=== PATIENT | female | born 1945 | race Caucasian/White ===

== ENCOUNTER 2017-09-02 06:11 | Day surgery (SDC) | payer MEDICARE ==
--- NOTE | 2017-08-19 07:39 | HP ---
HISTORY AND PHYSICAL: DATE OF SURGERY: 09/02/17. DATE OF OFFICE VISIT: 08/16/17. SURGEON: Dr. Tanja Pearson * (DICTATED BY SANDIE PETER) PROCEDURE: Right knee arthroscopy with partial medial meniscectomy, possible chondroplasty, possible synovectomy. CHIEF COMPLAINT: Right knee pain. HISTORY OF PRESENT ILLNESS: Ms. Curiel is a 72-year-old female with complaints of right knee pain and MRI shows a medial meniscus tear. She has elected to proceed with right knee arthroscopy with partial medial meniscectomy. PAST MEDICAL HISTORY: Sleep apnea, skin cancer, history of breast cancer, and hyperlipidemia. PAST SURGICAL HISTORY: Tonsillectomy, left ovary removal, breast lumpectomy, cataract removal, squamous cell carcinoma removal, and left inguinal hernia repair. CURRENT MEDICATIONS: Magnesium, ibuprofen, chondroitin, azelastine, econazole, nitrate, Flonase, alprazolam, aspirin, and fish oil. ALLERGIES: SULFA and CRESTOR. FAMILY HISTORY: Cancer. SOCIAL HISTORY: She is a 72-year-old female. She lives with her . She does not smoke or use drugs. She uses occasional alcohol. REVIEW OF SYSTEMS: A complete 14-point review of systems was reviewed with the patient. She denies history of DVT, PE, hepatitis C, or HIV following surgery on her breast. She did have an infection 5 and a 1/2 years ago. She is unsure whether or not this was MRSA. PHYSICAL EXAMINATION GENERAL: She is a well developed, well nourished, in no acute distress. VITAL SIGNS: She stands 5 feet 4 inches tall, weighs 160 pounds. Her blood pressure is 124/72, her heart rate is 84. HEENT: Normocephalic, atraumatic. NECK: Supple. No palpable lymph nodes. PULMONARY: Lungs are clear to auscultation bilaterally. CARDIO: Regular rate and rhythm. Strong S1 and S2. ABDOMEN: Soft, nontender, nondistended. MUSCULOSKELETAL: Right lower extremity, the skin is intact. There are no open wounds or abrasions. She has tenderness over the medial joint line of the right knee. There is a mild effusion. She has 5 to 125 degrees of range of motion. 2+ dorsalis pedis pulses and intact sensation. ASSESSMENT AND PLAN: Ms. Curiel is a 72-year-old female with complaints of right knee pain and MRI shows a medial meniscus tear. She has elected to proceed with right knee arthroscopy with partial medial meniscectomy, possible chondroplasty, possible synovectomy, and the surgery is scheduled for 09/02/[address] Pearson discussed the risks and benefits of the surgery at today's visit and all of her questions were answered. She will follow up with Dr. Pearson 2 weeks. SANDIE PETER [id number]/[facility] #: [id number] MTDD
[~2017-09-02 06:11] MED LIST: Buffered Lidocaine 0.9% SYRIN* 5 ML/SYR SYRINGE INTRADERM ONE; Famotidine IV* 10 MG/ML 2 ML (20 mg) IV ONE; Metoclopramide TAB* 10 MG PO ONE
[2017-09-02] MEDS ORDERED: Buffered Lidocaine 0.9% SYRIN* 5 ML/SYR SYRINGE ONE (06:37)
[2017-09-02] MEDS ORDERED: Metoclopramide TAB* 10 MG ONE (06:37)
[2017-09-02] MEDS ORDERED: ceFAZolin 2 GM PREMIX (*) 2 GM/50 ML BAG IVPB ONE (06:37)
[2017-09-02] MEDS ORDERED: Famotidine IV* 10 MG/ML 2 ML (20 mg) ONE (06:37)
[2017-09-02] MEDS ORDERED: Ketorolac INJ* 30 MG/ML 1 ML VIAL ONE (06:56)
[2017-09-02] MEDS ORDERED: KETAMINE HCL* 50 MG/ML 10 ML VIAL ONE (06:56)
[2017-09-02] MEDS ORDERED: Midazolam* 1 MG/ML 5 ML VIAL (5 MG) ONE (06:56)
[2017-09-02] MEDS ORDERED: Dexamethasone IV* 4 MG/ML 1 ML (4 MG) ONE (06:56)
[2017-09-02] MEDS ORDERED: Propofol* 10 MG/ML 20 ML BTL IV PUSH ONE (06:56)
[2017-09-02] MEDS ORDERED: fentaNYL* 50 MCG/ML 2 ML VIAL (100 MCG VIAL) ONE (06:56)
[2017-09-02] MEDS ORDERED: Ondansetron INJ* 2 MG/ML VIAL ONE (06:56)
[2017-09-02] MEDS ORDERED: Lidocaine 2% PF * 5 ML VIAL ONE (06:56)
[2017-09-02] MEDS ORDERED: EPINEPHrine AMP 1 MG/ML ONE ×2 (06:57→07:06)
[2017-09-02] MEDS ORDERED: Bupivacaine 0.5% SDV PF* 10-30ML VIAL ONE (06:57)
[2017-09-02] MEDS ORDERED: methylPREDNISolone ACETATE 80* 80 MG/ML 1 ML VIAL ONE (06:57)
[2017-09-02] MEDS ORDERED: Ondansetron INJ* 2 MG/ML VIAL IV PRN (07:21)
[2017-09-02] MEDS ORDERED: oxyCODONE/Acetamin 5/325 MG* TAB PO PRN (07:21)
[2017-09-02] MEDS ORDERED: Levalbuterol 0.63MG/3ML NEB* UNIT OF USE INH PRN (07:21)
[2017-09-02] MEDS ORDERED: Chloroprocaine 2%* 20 ML VIAL ONE (07:37)
[2017-09-02] MEDS ORDERED: EPHEDrine (Pressors)* 50 MG/ML VIAL ONE (08:15)
[2017-09-02] MEDS ORDERED: oxyCODONE/Acetamin 5/325 MG* TAB ONE (10:14)
[2017-09-02 11:03] VITALS: BP 117/65
--- NOTE | 2017-09-03 04:22 | OP ---
DATE OF OPERATION: 09/02/17 [facility] DATE OF : 41 SURGEON: Tanja Pearson MD GARMENT PATTERNMAKER: SANDIE Casper. Ms. Avila did help throughout the procedure with preparation of the leg, manipulation of the knee, and wound closure. ANESTHESIOLOGIST: Víctor Moore MD ANESTHESIA: Spinal. PRE-OP DIAGNOSES: Right knee pain with medial meniscal tear and osteoarthritis. POST-OP DIAGNOSES: Right knee pain with medial meniscal tear and osteoarthritis. OPERATIVE PROCEDURE: Right knee arthroscopy with partial medial meniscectomy and medial chondroplasty. INDICATIONS: Ms. Curiel is a 72-year-old female who has had years of mild knee pain due to arthritic changes in the knee. Three months ago, she was playing [employer] [place] when she twisted the knee. Since then, she has had acute onset of severe pain with mechanical symptoms. Physical exam was consistent with meniscal tear and MRI confirmed complex tear of the medial meniscus body and posterior horn. Due to continued pain, decreased quality of life, the patient elected to undergo right knee arthroscopy with partial medial meniscectomy. Informed consent was obtained from the patient. She understood the risks of surgery included but were not limited to bleeding, infection, damage to nearby structures, continued pain, need for further surgery, retear of the meniscus, stroke, heart attack, blood clot, and . She wishes to proceed. COMPLICATIONS: None. ESTIMATED BLOOD LOSS: Less than 25 cc. SPECIMEN: None. INTRAOPERATIVE FINDINGS: Intraoperatively, the patient was noted to have a large radial and longitudinal tear and body and posterior horn of the medial meniscus involving mainly the white-red zone. She had some grade 2 and 3 Outerbridge cartilage changes in the medial and patellofemoral compartments. DESCRIPTION OF PROCEDURE: Ms. Curiel was identified in the preanesthesia unit. Her right lower extremity was marked as the correct operative side. Informed consent was signed and placed in the chart. The patient was taken to the operating room and placed under spinal anesthesia. Right lower extremity was prepped and draped in the usual sterile fashion. Preop time-out was made to correctly identify the patient's side and site. Appropriate perioperative antibiotics were given within 1 hour of incision. A 0.5-cm anterolateral portal incision was made with a 15 blade and carried through the capsule. Trocar was introduced. As soon as the light and water sources were turned on, there was immediate visualization of the suprapatellar pouch. A tour of the knee joint was performed. Suprapatellar pouch showed no obvious abnormality. Patellofemoral compartment showed grade 2 and 3 Outerbridge cartilage changes. There was no exposed subchondral bone. Medial gutter showed no loose body or plica. Medial compartment showed grade 3 and 4 Outerbridge cartilage changes along the medial femoral condyle with minimal amount of exposed subchondral bone. Posterior horn of the medial meniscus had a radial type tear in the white-red zone. Body of the medial meniscus had a longitudinal type tear in the white-red zone. ACL and PCL appeared to be intact. The knee was placed in a figure-of-4 position. There were no significant degenerative changes in the lateral compartment and no obvious lateral meniscal tear. Lateral gutters showed no obvious loose body or plica. Under direct visualization, a medial portal incision was made with a 15 blade. Probe was introduced. A second tour of the knee joint was performed. No additional findings were noted. Straight biter and shaver were used to perform partial medial meniscectomy. This was performed in the white-red zone of the posterior 50% of the medial meniscus. A probe was used to ensure there was no further tearing or flipped fragments. Radiofrequency ablation wand was used to further smooth the edge of the medial meniscus. Radiofrequency ablation wand was then used to smooth any cartilage flaps along the medial femoral condyle. The knee was copiously irrigated with sterile saline. All instruments were carefully removed. The incisions were closed using interrupted 3-0 nylon suture. Intraarticular injection of 80 mg of Depo-Medrol and 6 cc of 0.25% Marcaine was placed in the knee joint. The patient's incisions were covered with Xeroform, 4x4's, and Webril. Prasanth wrap and cold pack were placed over this. The patient's anesthesia was reversed without difficulty. She was taken to the PACU in stable condition. Intended weightbearing will be weightbearing as tolerated. Intended DVT prophylaxis will be Coumadin with Lovenox bridge. [id number]/[facility] #: [id number] BRAN
== END 2017-09-02 11:06 | disposition home or self-care (01) ==
LOC: OR 06:11
PROVIDERS: ATTEND Orthopaedic Surgery Adult Reconstructive Orthopaedic Surgery
DX: S83.241A Other tear of medial meniscus, current injury, right knee, initial encounter (principal); M17.11 Unilateral primary osteoarthritis, right knee; X50.9XXA Other and unspecified overexertion or strenuous movements or postures, initial encounter; Y93.73 Activity, racquet and hand sports; Y92.9 Unspecified place or not applicable; R00.0 Tachycardia, unspecified; G47.33 Obstructive sleep apnea (adult) (pediatric); G62.9 Polyneuropathy, unspecified; Z85.828 Personal history of other malignant neoplasm of skin; Z85.3 Personal history of malignant neoplasm of breast; Z79.82 Long term (current) use of aspirin; Z88.2 Allergy status to sulfonamides; Z88.8 Allergy status to other drugs, medicaments and biological substances
CPT/HCPCS: 62323; A9270-GY; J0171; J0690; J1040; J1100; J1885; J2250; J2400; J2405; J2704; J3010